=== PATIENT | male | born 1965 | race Caucasian/White ===

== ENCOUNTER 2019-11-30 16:11 | Emergency (ER) | payer SELFPAY ==
[~2019-11-30] VITALS: Ht 167.6 cm; Wt 90.9 kg
[2019-11-30 16:45] VITALS: BP 124/74
== END 2019-11-30 17:44 | disposition home or self-care (01) ==
LOC: EMS 16:13
DX: F10.129 Alcohol abuse with intoxication, unspecified (principal); Y90.9 Presence of alcohol in blood, level not specified